=== PATIENT | female | born 1985 | race Caucasian/White ===

== ENCOUNTER 2018-10-23 17:48 | Emergency (ER) | payer MEDICARE, MEDICAID ==
[2018-10-23 18:05] VITALS: BP 102/76
--- NOTE | 2018-10-23 19:32 | UC ---
Skin Complaint HPI - HPI Summary HPI Summary: 32-year-old female who states that she has bedbugs in her apartment and she states that she took her navel piercing out and she thinks a bedbug was up in the piercing. She states that she saw last evening. She has been squeezing it and trying to find the bedbug unsuccessfully. - History of Current Complaint Chief Complaint: UCSkin Time Seen by Provider: 10/23/18 18:36 Stated Complaint: SKIN CONCERN Hx Obtained From: Patient Hx Last Menstrual Period: "I don't get 'em often ... over a month ago." ?: No Onset/Duration: Gradual Onset Skin Exposure Onset/Duration: Hours Ago Timing: Constant Onset Severity: Mild Current Severity: Mild Pain Intensity: 9 Location: Other - Navel piercing Character: Redness Aggravating Factor(s): Nothing Alleviating Factor(s): Nothing Associated Signs & Symptoms: Positive: Negative Related History: Insect Bite/Sting - Patient states that she thinks the bedbug is up inside the piercing. - Allergy/Home Medications Allergies/Adverse Reactions: Allergies Allergy/AdvReac Type Severity Reaction Status Date / Time latex Allergy Hives Verified 10/23/18 17:59 Home Medications: Home Medications Albuterol HFA INHALER* [Ventolin HFA Inhaler*] 1 - 2 puff INH Q4H PRN 10/23/18 [ History Confirmed 10/23/18] Buprenorphine HCl/Naloxone HCl [Suboxone] 1 mis SL BID 10/23/18 [History Confirmed 10/23/18] Fluoxetine HCl [Fluoxetine Hydrochloride] 60 mg PO DAILY 10/23/18 [History Confirmed 10/23/18] Gabapentin 800 mg PO TID 10/23/18 [History Confirmed 10/23/18] Lisdexamfetamine Dimesylate [Vyvanse] 30 mg PO DAILY 10/23/18 [History Confirmed 10/23/18] Prazosin HCl 2 mg PO BEDTIME 10/23/18 [History Confirmed 10/23/18] traZODone TAB* [Desyrel TAB*] 200 mg PO BEDTIME 10/23/18 [History Confirmed ] PMH/Surg Hx/FS Hx/Imm Hx Previously Healthy: Yes Respiratory History: Asthma - Surgical History Surgical History: Yes Surgery Procedure, Year, and Place: , 2018, [place]; Tracheotomy, 1994 - Family History Known Family History: Positive: Non-Contributory - Social History Alcohol Use: None Substance Use Type: None Smoking Status (MU): Heavy Every Day Tobacco Smoker Type: Cigarettes Amount Used/How Often: 2 PPD Length of Time of Smoking/Using Tobacco: Since Age 19 Review of Systems All Other Systems Reviewed And Are Negative: Yes Skin: Positive: Other - Patient has some redness around the umbilicus with tenderness on palpation, no active drainage. Is Patient Immunocompromised?: No Physical Exam Triage Information Reviewed: Yes Appearance: Well-Appearing, No Pain Distress, Well-Nourished Vital Signs: Initial Vital Signs Temp 98.4 F 10/23/18 17:57 Pulse 108 10/23/18 17:57 Resp 20 10/23/18 17:57 BP 102/76 10/23/18 17:57 Pulse Ox 98 10/23/18 17:57 Vital Signs Reviewed: Yes Abdomen Description: Positive: Nontender, No Organomegaly, Soft Bowel Sounds: Positive: Present Skin: Positive: Other - Patient has some redness around the superior portion of the umbilicus, piercing is intact, no active drainage, I do not visualize any foreign body. Course/Dx - Course Course Of Treatment: I was unable to visualize the bedbug. I irrigated the piercing with approximately 20 cc of normal saline with high pressure and no foreign body was noted. Patient tolerated procedure well. She does have an appointment with her primary care provider on Saturday for recheck. I'm going to give her mupirocin ointment to apply tonight and if in the morning the redness is worse or drainage then she is to start the Bactrim. If she develops fever, chills or worsening symptoms she is to go the emergency room. We do not have sonogram available tonight. - Diagnoses Provider Diagnosis: Cellulitis of umbilicus Discharge - Sign-Out/Discharge Documenting (check all that apply): Patient Departure All imaging exams completed and their final reports reviewed: No Studies - Discharge Plan Condition: Fair Disposition: HOME Prescriptions: Mupirocin 2% OINT* [Bactroban 2 % Oint*] 1 applic TOPICAL BID #1 tube Sulfamethox/Trimethoprim DS* [Bactrim DS 800/160 TAB*] 1 tab PO BID 7 Days #14 tab Patient Education Materials: Cellulitis (DC) Referrals: Eros Frye MD [Primary Care Provider] - Additional Instructions: Apply warm moist compresses to the area 4-6 times a day. Applied the mupirocin ointment twice tonight and once tomorrow. If the area looks worse tomorrow than start the Bactrim DS one tab by mouth twice a day 7 days. Keep your appointment on Saturday for recheck. Do not put your piercing back in until this has cleared up. - Billing Disposition and Condition Condition: FAIR Disposition: Home
== END 2018-10-23 19:34 | disposition home or self-care (01) ==
LOC: UCCORT 17:48
DX: L03.316 Cellulitis of umbilicus (principal); J45.909 Unspecified asthma, uncomplicated; F17.210 Nicotine dependence, cigarettes, uncomplicated
CPT/HCPCS: 99202; G0463